=== PATIENT | female | born 1990 | race Caucasian/White ===

== ENCOUNTER 2020-10-09 13:51 | Emergency (ER) | payer MEDICAID ==
--- NOTE | 2020-10-09 15:01 | EDM.PDOC ---
ED HPI GENERAL MEDICAL PROBLEM - General Chief Complaint: Behavioral/Psych Stated Complaint: TOOK TO MANY IBUPROFIN AND PANIC ATTACK Time Seen by Provider: 10/09/20 14:24 Source of Information: Reports: Patient, RN Notes Reviewed History Limitations: Reports: No Limitations - History of Present Illness INITIAL COMMENTS - FREE TEXT/NARRATIVE: Patient is a 29-year-old female who presents to the ED for the evaluation of taking too many ibuprofen. The patient was brought in by her sister or [id number]. The patient notes that she took roughly 15 to 20 200 mg ibuprofen tablets at around 11 AM today. The patient states that she was feeling kind of sad this morning, she had some passive suicidal thoughts, but she states after she took the pills, she tried vomiting them straight back up, as she realized what a stupid decision she made. She is not actively suicidal at this time, denies any suicidal ideation or intent at the time of triage. She notes that she is not having any nausea, vomiting, or other GI disturbance. She states she has some "kidney pain in her back", and she was having some intermittent chest pains shortly after the ingestion, which she attributed to possible panic or anxiety. She notes that her life has been increasingly stressful, and again states she does not know why she took the ibuprofen but nonetheless she did take them. She is not had any previous suicidal attempts or ideations. She does not have a counselor to converse with. She is not hearing things that are not there or seeing things that are not there. Patient denies any other sick-like symptoms, fever/chills, cough/shortness of breath, nausea/vomiting/diarrhea. She denies any sort of sick contacts as well. Patient notes she has been increasing her fluid intake after this, and this did seem to help some of the symptoms. - Related Data Allergies Allergy/AdvReac Type Severity Reaction Status Date / Time No Known Allergies Allergy Verified 10/09/20 14:02 Home Meds: Home Meds . [No Known Home Meds] 10/09/20 [History] Past Medical History - Past Health History Medical/Surgical History: Denies Medical/Surgical History Social & Family History - Tobacco Use Tobacco Use Status *Q: Current Every Day Tobacco User Years of Tobacco use: 7 Packs/Tins Daily: 0.5 - Caffeine Use Caffeine Use: Reports: None - Recreational Drug Use Recreational Drug Use: No ED ROS GENERAL - Review of Systems Review Of Systems: Comprehensive ROS is negative, except as noted in HPI. ED EXAM, GENERAL - Physical Exam Exam: See Below Exam Limited By: No Limitations General Appearance: Alert, WD/WN, No Apparent Distress, Anxious (generalized) Respiratory/Chest: No Respiratory Distress, Lungs Clear, Normal Breath Sounds, No Accessory Muscle Use, Chest Non-Tender Cardiovascular: Normal Peripheral Pulses, Regular Rate, Rhythm, No Murmur Peripheral Pulses: 2+: Radial (L), Radial (R) GI/Abdominal: Normal Bowel Sounds, Soft, Non-Tender, No Distention, No Mass Neurological: Alert, Oriented, Normal Cognition, No Motor/Sensory Deficits Psychiatric: Normal Affect, Normal Mood Skin Exam: Warm, Dry, Intact, Normal Color, No Rash Course - Vital Signs Last Recorded V/S: Last Vital Signs Temp 97.7 F 10/09/20 14:00 Pulse 87 10/09/20 14:00 Resp 16 10/09/20 14:00 BP 135/86 10/09/20 14:00 Pulse Ox 99 10/09/20 14:00 - Orders/Labs/Meds Labs: Laboratory Tests 10/09/20 10/09/20 Range/Units 14:59 14:59 Sodium 138 (136-145) mEq/L Potassium 3.4 L (3.5-5.1) mEq/L Chloride 104 (98-107) mEq/L Carbon Dioxide 22 (21-32) mEq/L Anion Gap 15.4 H (5-15) BUN 12 (7-18) mg/dL Creatinine 0.6 (0.55-1.02) mg/dL Est Cr Clr Drug Dosing 116.50 mL/min Estimated GFR (MDRD) > 60 (>60) mL/min BUN/Creatinine Ratio 20.0 H (14-18) Glucose 99 (74-106) mg/dL Calcium 8.7 (8.5-10.1) mg/dL Total Bilirubin 0.4 (0.2-1.0) mg/dL AST 23 (15-37) U/L ALT 42 (14-59) U/L Alkaline Phosphatase 77 (46-116) U/L Total Protein 7.7 (6.4-8.2) g/dl Albumin 4.0 (3.4-5.0) g/dl Globulin 3.7 gm/dL Albumin/Globulin Ratio 1.1 (1-2) Salicylates 2.1 L (2.8-20) mg/dL Acetaminophen 0 L (10-30) ug/mL - Re-Assessments/Exams Free Text/Narrative Re-Assessment/Exam: 10/09/20 15:01 Patient presents to the ED for the ingestion of too many ibuprofen. Upon extensive talk with the patient, I do not believe she is actively suicidal at this time, and I do not believe she would benefit from inpatient psychiatric management. I do believe this was a fleeting thought and she made an error in judgment. She states she does have family at home, that can keep her safe, she does feel safe to return home at this time. I was in contact with poison control, and they state that there is not a lot to worry about at this dosage level. They do recommend getting a metabolic panel, salicylate and Tylenol level for further evaluation however. Those orders have been placed. Once these have resulted, we will hopefully get her going home and have her follow-up with [facility] on outpatient management. 10/09/20 15:43 There are no major abnormalities noted on the patient's lab values at this time. She will be discharged home into her family's care. Departure - Departure Time of Disposition: 15:44 Disposition: Home, Self-Care 01 Condition: Good Clinical Impression: Accidental ibuprofen overdose Qualifiers: Encounter type: initial encounter Qualified Code(s): T39.311A - Poisoning by propionic acid derivatives, accidental (unintentional), initial encounter - Discharge Information *PRESCRIPTION DRUG MONITORING PROGRAM REVIEWED*: No *COPY OF PRESCRIPTION DRUG MONITORING REPORT IN PATIENT STEFANIE: No Instructions: Intentional Drug Overdose Referrals: PCP,None [Primary Care Provider] - Forms: ED Department Discharge Additional Instructions: You were evaluated in the ER today for taking too much ibuprofen. Laboratory evaluation demonstrated no focal abnormalities. At this time you are not deemed a harm to yourself. I do recommend that you follow-up with [facility] human services for further counseling issues as needed, their telephone number is [phone]. Their emergency crisis number is [phone]. I would recommend you call them or go there on Sunday morning, to see what they can provide for you for further management. Please return to the ER if your symptoms change or worsen. Sepsis Event Note (ED) - Evaluation Sepsis Screening Result: No Definite Risk - Focused Exam Vital Signs: Vital Signs Temp Pulse Resp BP Pulse Ox 10/09/20 14:00 97.7 F 87 16 135/86 99
[2020-10-09 15:35] LABS: ACETAMINOPHEN 0 ug/mL (10-30)
== END 2020-10-09 15:50 | disposition home or self-care (01) ==
LOC: JD.ED 13:51
DX: T39.311A Poisoning by propionic acid derivatives, accidental (unintentional), initial encounter (principal); F17.210 Nicotine dependence, cigarettes, uncomplicated
CPT/HCPCS: 36415; 80053; 80307; 99283